=== PATIENT | female | born 1995 | race Caucasian/White ===

== ENCOUNTER → 2022-07-12 | Outpatient (CLI) | payer OTHER ==
[2022-07-12 13:44] LABS: BASO # 0.1 10^3/uL (0.0-0.2); BASO % 1.1 % (0.0-1.0); EOS # 0.4 10^3/uL (0.0-0.5); EOS % 5.1 % (0.0-3.0); HEMATOCRIT 43.1 % (36.0-47.0); HEMOGLOBIN 14.3 g/dl (12.0-15.5); LYMPH # 2.2 10^3/uL (1.5-5.0); LYMPH % 29.1 % (24.0-44.0); MEAN CORPUSCULAR HEMOGLOBIN 31.4 pg (27.0-33.0); MEAN CORPUSCULAR HGB CONC 33.2 g/dl (32.0-36.5); MEAN CORPUSCULAR VOLUME 94.5 fl (80.0-96.0); MONO # 0.5 10^3/uL (0.0-0.8); MONO % 6.9 % (2.0-8.0); NEUTROPHILS # 4.3 10^3/uL (1.5-8.5); NEUTROPHILS % 57.4 % (36.0-66.0); RED BLOOD COUNT 4.56 10^6/uL (4.00-5.40); WHITE BLOOD COUNT 7.4 10^3/uL (4.0-10.0)
[2022-07-12 13:46] LABS: ALBUMIN 3.8 G/DL (3.2-5.2); ALKALINE PHOSPHATASE 53 U/L (46-116); ALT/SGPT 21 U/L (7.0-40); AST/SGOT 23 U/L (<34); BILIRUBIN,TOTAL 0.7 MG/DL (0.3-1.2); BLOOD UREA NITROGEN 18 MG/DL (9-23); CALCIUM LEVEL 9.6 MG/DL (8.5-10.1); CARBON DIOXIDE LEVEL 29 MMOL/L (20-31); CHLORIDE LEVEL 105 MMOL/L (98-107); CHOLESTEROL LEVEL 233 MG/DL (<200); CHOLESTEROL RISK RATIO 3.01 (<5); CREATININE FOR GFR 0.86 MG/DL (0.55-1.30); GLOMERULAR FILTRATION RATE > 60.0 (>60); GLUCOSE, FASTING 80 MG/DL (60-100); HDL CHOLESTEROL 77.2 MG/DL (>40); LDL CHOLESTEROL 138.4 MG/DL (<100); NON-HDL-C 156 MG/DL; SODIUM LEVEL 139 MMOL/L (136-145); TOTAL PROTEIN 6.8 G/DL (5.7-8.2); TRIGLYCERIDES LEVEL 87 MG/DL (<150)
== END ==
LOC: M PLALAB 10:06
PROVIDERS: ATTEND Nurse Practitioner Family
DX: Z00.00 Encounter for general adult medical examination without abnormal findings (principal); E78.01 Familial hypercholesterolemia

== ENCOUNTER → 2023-07-18 | Outpatient (CLI) | payer OTHER ==
[2023-07-18 17:12] LABS: ALBUMIN 4.4 G/DL (3.2-5.2); ALKALINE PHOSPHATASE 53 U/L (46-116); ALT/SGPT 17 U/L (7.0-40); AST/SGOT 15 U/L (<34); BILIRUBIN,TOTAL 0.5 MG/DL (0.3-1.2); BLOOD UREA NITROGEN 15 MG/DL (9-23); CALCIUM LEVEL 9.9 MG/DL (8.5-10.1); CARBON DIOXIDE LEVEL 29 MMOL/L (20-31); CHLORIDE LEVEL 104 MMOL/L (98-107); CHOLESTEROL LEVEL 297 MG/DL (<200); CHOLESTEROL RISK RATIO 4.23 (<5); CREATININE FOR GFR 0.85 MG/DL (0.55-1.30); GLOMERULAR FILTRATION RATE > 60.0 (>60); GLUCOSE, FASTING 81 MG/DL (60-100); HDL CHOLESTEROL 70.1 MG/DL (>40); LDL CHOLESTEROL 215.1 MG/DL (<100); MAGNESIUM LEVEL 1.9 MG/DL (1.8-2.4); NON-HDL-C 226.9 MG/DL; POTASSIUM SERUM 4.7 MMOL/L (3.5-5.1); SODIUM LEVEL 138 MMOL/L (136-145); TOTAL PROTEIN 7.3 G/DL (5.7-8.2); TRIGLYCERIDES LEVEL 59 MG/DL (<150)
== END ==
LOC: M PLALAB 10:27
PROVIDERS: ATTEND Registered Nurse
DX: E78.01 Familial hypercholesterolemia (principal)

== ENCOUNTER → 2023-07-27 | Outpatient (CLI) | payer OTHER ==
[2023-07-27 11:46] LABS: FREE T4 1.13 NG/DL (0.89-1.76)
[2023-07-27 11:47] LABS: THYROID STIMULATING HORMONE 1.155 uIU/ML (0.55-4.78)
== END ==
LOC: M PLALAB 08:57
PROVIDERS: ATTEND Registered Nurse
DX: Z00.00 Encounter for general adult medical examination without abnormal findings (principal)

== ENCOUNTER → 2023-09-22 | Outpatient (CLI) | payer OTHER ==
[2023-09-22 13:35] LABS: CHOLESTEROL RISK RATIO 1.5 (<5); HDL CHOLESTEROL 65.6 MG/DL (>40); LDL CHOLESTEROL 26.4 MG/DL (<100); NON-HDL-C 33.4 MG/DL
[2023-09-23 07:09] LABS: APOLIPOPROTEIN B/A-1 RATIO 0.2 ratio (0.0-0.6)
== END ==
LOC: M PLALAB 09:37
PROVIDERS: ATTEND Internal Medicine Cardiovascular Disease
DX: E78.2 Mixed hyperlipidemia (principal); Z82.49 Family history of ischemic heart disease and other diseases of the circulatory system; Z71.3 Dietary counseling and surveillance